=== PATIENT | female | born 1990 | race Caucasian/White ===

== ENCOUNTER 2019-07-31 20:54 | Emergency (ER) | payer BC, OTHER ==
[~2019-07-31 20:54] MED LIST: IBUP200T49 PO; OXYC-302 PO; PREN1TAB60 PO
[2019-07-31] MEDS ORDERED: ONDANSETRON 2MG/ML, 2ML IV ONE (21:30)
[2019-07-31] MEDS ORDERED: RACEPINEPHRINE INH 2.25%, 0.5ML NPPB ONE (21:30)
[2019-07-31] MEDS ORDERED: methylPREDNISolone SOD SUCC 125 MG/2 ML IV ONE (21:30)
[2019-07-31] MEDS ORDERED: methylPREDNISolone SOD SUCC 125 MG/2 ML ONE (21:36)
[2019-07-31] MEDS ORDERED: RACEPINEPHRINE INH 2.25%, 0.5ML ONE (21:36)
[2019-07-31] MEDS ORDERED: ONDANSETRON 2MG/ML, 2ML ONE (21:36)
[2019-07-31 21:51] LABS: BASOPHILS # (AUTO) 0.02 x10^3/uL (0-0.1); BASOPHILS % (AUTO) 0 % (0-1); EOSINOPHILS % (AUTO) 2 % (1-7); LYMPHOCYTES # (AUTO) 1.31 x10^3/uL (1-3.4); LYMPHOCYTES % (AUTO) 26 % (22-44); MD NO; MEAN CORPUSCULAR HEMOGLOBIN 25.8 pg (27.0-34.8); MEAN CORPUSCULAR VOLUME 78.2 fL (80-100); MEAN PLATELET VOLUME 7.8 fL (7.4-10.4); MONOCYTES # (AUTO) 0.37 x10^3/uL (0.2-0.8); MONOCYTES % (AUTO) 8 % (2-9); NEUTROPHILS # (AUTO) 3.18 x10^3/uL (1.8-6.8); NEUTROPHILS % (AUTO) 64 % (42-75); PLATELET COUNT 289 x10^3/uL (130-400); RED BLOOD COUNT 4.41 x10^6/uL (3.82-5.3); RED CELL DISTRIBUTION WIDTH 15.5 % (9.6-15.2)
[2019-07-31 22:03] LABS: ALBUMIN 4.1 g/dL (3.4-5.0); ANION GAP 10 mmol/L (5-15); CHLORIDE 109 mmol/L (98-107); CREATININE 0.72 mg/dL (0.55-1.02)
[2019-07-31] MEDS ORDERED: MORPHINE SULFATE 4 MG/ML, 1ML ONE (22:19)
[2019-07-31] MEDS ORDERED: KETOROLAC 30 MG/1 ML ONE (22:19)
[2019-07-31] MEDS ORDERED: MORPHINE SULFATE 4 MG/ML, 1ML IVPush PRN (22:30)
[2019-07-31] MEDS ORDERED: KETOROLAC 30 MG/1 ML IVPush ONE (22:30)
--- NOTE | 2019-07-31 22:52 | NUR ---
pt bib with c/o diff breathing that started last night and worsened tonight. pt with audible stridor
--- NOTE | 2019-07-31 22:53 | NUR ---
pt had iv medications and breathing treatment. pt states she feels better and no stridor is heard at this time.
--- NOTE | 2019-07-31 22:53 | NUR ---
pt ambulatory to the bathroom with a steady gait
[2019-07-31 23:57] VITALS: BP 96/72
--- NOTE | 2019-08-01 04:06 | NUR ---
see paper charting for down time documentation
== END 2019-08-01 04:08 | disposition home or self-care (01) ==
LOC: ED 23:55
DX: J04.0 Acute laryngitis (principal); B97.89 Other viral agents as the cause of diseases classified elsewhere
CPT/HCPCS: 36415; 70360; 71045; 80048; 82040; 84145; 84703; 85025; 87040; 93005; 94640; 96374; 96375; 99285; J1885; J2270; J2405; J2930

== ENCOUNTER 2021-02-07 10:02 | Outpatient (CLI) | payer BC ==
[~2021-02-07] VITALS: Ht 157.5 cm; Wt 70.5 kg
[~2021-02-07 10:02] MED LIST changes: -OXYC-302 PO; +OXYC1TAB14 PO
== END 2021-02-07 11:23 | disposition home or self-care (01) ==
LOC: LDOP 10:02
PROVIDERS: ATTEND Obstetrics & Gynecology
DX: O98.513 Other viral diseases complicating pregnancy, third trimester (principal); O99.513 Diseases of the respiratory system complicating pregnancy, third trimester; U07.1 COVID-19; J98.8 Other specified respiratory disorders; Z3A.39 39 weeks gestation of pregnancy
CPT/HCPCS: 59025

== ENCOUNTER 2021-02-10 22:33 | Inpatient (IN) | payer BC ==
[~2021-02-10] VITALS: Ht 157.5 cm; Wt 70.0 kg
[2021-02-10 22:58] VITALS: BP 130/79
[2021-02-10] MEDS ORDERED: OXYTOCIN 30U/ 0.9% NaCL 500ML 500 ML ONE (23:15)
[2021-02-10] MEDS ORDERED: NEWBORN KIT ONE (23:15)
[2021-02-10] MEDS ORDERED: LIDOCAINE 1%, 20ML ONE (23:15)
[2021-02-10 23:23] LABS: BASOPHILS % (AUTO) 1 % (0-1); EOSINOPHILS % (AUTO) 1 % (1-7); LYMPHOCYTES % (AUTO) 15 % (22-44); MEAN CORPUSCULAR HEMOGLOBIN 29.5 pg (27.0-34.8); MONOCYTES % (AUTO) 6 % (2-9); NEUTROPHILS % (AUTO) 78 % (42-75); PLATELET COUNT 230 x10^3/uL (130-400); RED BLOOD COUNT 4.22 x10^6/uL (3.82-5.3); RED CELL DISTRIBUTION WIDTH 13.8 % (9.6-15.2)
[2021-02-10] MEDS ORDERED: FENTANYL PF 100 MCG/2ML ONE (23:27)
[2021-02-10] MEDS ORDERED: CALCIUM CARBONATE 500 MG TAB.CHEW PO PRN (23:30)
[2021-02-10] MEDS ORDERED: TERBUTALINE 1 MG/ML, 1ML SQ PRN (23:30)
[2021-02-10] MEDS ORDERED: ONDANSETRON 2MG/ML, 2ML IVPush PRN (23:30)
[2021-02-10] MEDS ORDERED: D5%-LACTATED RINGERS 1,000 ML IV SCH (23:30)
[2021-02-10] MEDS ORDERED: METOCLOPRAMIDE 5 MG/ML, 2ML IVPush PRN (23:30)
[2021-02-10] MEDS ORDERED: FENTANYL PF 100 MCG/2ML IV PRN (23:30)
[2021-02-10] MEDS ORDERED: FENTANYL PF 100 MCG/2ML IVPush PRN (23:30)
[2021-02-10] MEDS ORDERED: OXYTOCIN 30U/ 0.9% NaCL 500ML 500 ML IV PRN (23:30)
[2021-02-10] MEDS ORDERED: OXYTOCIN 30U/ 0.9% NaCL 500ML 500 ML IV ONE (23:30)
[2021-02-10] MEDS ORDERED: TERBUTALINE 1 MG/ML, 1ML IVPush PRN (23:30)
[2021-02-10] MEDS ORDERED: LACTATED RINGERS 1,000 ML IV SCH (23:30)
[2021-02-10] MEDS ORDERED: BUPIVACAINE 0.25% ONE (23:56)
[2021-02-10] MEDS ORDERED: FENTANYL/BUPIV./NS/PF 250 ML EPIDCONT ONE (23:56)
[2021-02-11] MEDS ORDERED: FENTANYL/BUPIV./NS/PF 250 ML EPIDCONT SCH
[2021-02-11] MEDS ORDERED: GLYCERIN ADULT SUPP PR PRN
[2021-02-11] MEDS ORDERED: ACETAMINOPHEN 325 MG TABLET PO PRN
[2021-02-11] MEDS ORDERED: LACTATED RINGERS 1,000 ML IVBOLUS PRN
[2021-02-11] MEDS ORDERED: BISACODYL 10 MG SUPP PR PRN
[2021-02-11] MEDS ORDERED: EPHEDRINE 50 MG/ML, 1ML IVPush PRN
[2021-02-11] MEDS ORDERED: OXYcodone/APAP 5/325MG TABLET PO PRN ×2
[2021-02-11] MEDS ORDERED: SIMETHICONE 80 MG CHEW TAB PO PRN
[2021-02-11] MEDS ORDERED: RHOGAM FROM BLOOD BANK 1 NOTE EA IM/IV ONE
[2021-02-11] MEDS ORDERED: DOCUSATE 100 MG CAPSULE PO PRN
[2021-02-11] MEDS ORDERED: DIPH,PERTUSS(ACELL),TET VAC/PF NC IM-VACC PRN
[2021-02-11] MEDS ORDERED: CARBOPROST TROMETHAMINE 250 MCG/ML, 1ML IM PRN
[2021-02-11] MEDS ORDERED: METHYLERGONOVINE 0.2 MG/ML IM PRN
[2021-02-11] MEDS ORDERED: MISOPROSTOL 200 MCG TABLET PR PRN
[2021-02-11] MEDS: IBUPROFEN 600 MG TABLET PO PRN ×4 (01:07→23:38)
[2021-02-11] MEDS: OXYTOCIN 30U/ 0.9% NaCL 500ML 500 ML IV SCH ×4 (02:41→21:46)
[2021-02-11] MEDS ORDERED: LEVO125T PO (03:24)
[2021-02-11 03:30] VITALS: BP 112/77
[2021-02-11] MEDS: LEVOTHYROXINE 125 MCG TABLET PO SCH (05:44)
[2021-02-11] MEDS: LACTATED RINGERS 1,000 ML IV SCH ×4 (08:00→21:46)
[2021-02-11] MEDS: PRENATAL VIT/IRON/FA 1 EACH TABLET PO SCH (08:07)
[2021-02-11 08:37] LABS: BASOPHILS % (AUTO) 0 % (0-1); EOSINOPHILS % (AUTO) 0 % (1-7); LYMPHOCYTES % (AUTO) 14 % (22-44); MEAN CORPUSCULAR HEMOGLOBIN 29.5 pg (27.0-34.8); MEAN CORPUSCULAR HGB CONC 33.7 g/dL (32.4-35.8); MEAN PLATELET VOLUME 7.8 fL (7.4-10.4); MONOCYTES % (AUTO) 6 % (2-9); NEUTROPHILS % (AUTO) 80 % (42-75); PLATELET COUNT 219 x10^3/uL (130-400); RED BLOOD COUNT 3.83 x10^6/uL (3.82-5.3); RED CELL DISTRIBUTION WIDTH 13.6 % (9.6-15.2)
[2021-02-11 09:45] VITALS: BP 105/67
[2021-02-11 12:28] VITALS: BP 104/67
[2021-02-11 16:20] VITALS: BP 121/68
[2021-02-11 19:00] VITALS: BP 110/70
[2021-02-11 23:45] VITALS: BP 112/73
[2021-02-12 04:15] VITALS: BP 110/74
[2021-02-12] MEDS: LEVOTHYROXINE 125 MCG TABLET PO SCH (05:51)
[2021-02-12] MEDS: LACTATED RINGERS 1,000 ML IV SCH (08:00)
[2021-02-12 08:53] VITALS: BP 113/73
[2021-02-12] MEDS: PRENATAL VIT/IRON/FA 1 EACH TABLET PO SCH (09:00)
[2021-02-12] MEDS ORDERED: IBUP-1222 PO (10:41)
== END 2021-02-12 14:00 | disposition home or self-care (01) | DRG 807 ==
LOC: LDOP 22:33 → LDIP 23:25 → 2NW 02-11 03:10
PROVIDERS: ADMIT Obstetrics & Gynecology; ATTEND Obstetrics & Gynecology
PROC: 10E0XZZ Delivery of Products of Conception, External Approach (ICD-10-PCS; principal; 2021-02-11)
PROC: 0KQM0ZZ Repair Perineum Muscle, Open Approach (ICD-10-PCS; 2021-02-11)
DX: O77.0 Labor and delivery complicated by meconium in amniotic fluid (principal); Z37.0 Single live birth; O70.1 Second degree perineal laceration during delivery; O99.284 Endocrine, nutritional and metabolic diseases complicating childbirth; E03.9 Hypothyroidism, unspecified; Z3A.40 40 weeks gestation of pregnancy; Z86.16 Personal history of COVID-19; Z91.011 Allergy to milk products
CPT/HCPCS: 36415; 85025; 86592; 86850; 86900; G0378; J3010; J2590; J7120